=== PATIENT | male | born 1985 | race Caucasian/White ===

== ENCOUNTER 2019-06-26 16:58 | Emergency (ER) | payer MEDICAID, OTHER ==
[~2019-06-26] VITALS: Ht 190.5 cm; Wt 122.7 kg
[~2019-06-26 16:58] MED LIST: LITH300C3 PO; OLAN10TA22 PO
[2019-06-26 19:34] LABS: ANION GAP 10 mmol/L (8-16); CALCIUM, TOTAL 8.8 mg/dL (8.8-10.5); CARBON DIOXIDE 25 mmol/L (22-29); CHLORIDE 105 mmol/L (98-107); CREATININE 0.91 mg/dL (0.60-1.30); GLOMERULAR FILTR. RATE CALC > 60 mL/min (>60); GLUCOSE,RANDOM 98 mg/dL (70-110); POTASSIUM 3.9 mmol/L (3.5-5.1); SODIUM SERUM 140 mmol/L (136-145); UREA NITROGEN, BLOOD 16 mg/dL (7-18)
[2019-06-26 19:38] LABS: BASOPHILS % (AUTO) 0.8 % (0.0-2.0); HEMATOCRIT 44.7 % (41-53); HEMOGLOBIN 15.2 g/dL (13.5-17.5); LYMPHOCYTES # (AUTO) 3.2 K/uL (1.0-4.8); LYMPHOCYTES % (AUTO) 46.4 % (22.0-44.0); MEAN CORPUSCULAR HEMOGLOBIN 28.4 pg (26.0-34.0); MEAN CORPUSCULAR VOLUME 84 fL (80-100); MONOCYTES # (AUTO) 0.7 K/uL (0.1-1.0); MONOCYTES % (AUTO) 9.5 % (2.0-9.0); NEUTROPHILS # (AUTO) 2.7 K/uL (1.8-7.7); NEUTROPHILS % (AUTO) 39.3 % (40.0-70.0); PLATELET COUNT (AUTO) 241 K/uL (150-450); RED BLOOD CELL COUNT(AUTO) 5.34 MIL/uL (4.50-5.90); RED CELL DISTRIBUTION WIDTH 13.4 % (11.5-14.5)
[2019-06-26 19:40] LABS: ALANINE AMINOTRANSFERASE 63 U/L (12-78); ALKALINE PHOSPHATASE 63 U/L (46-116); ASPARTATE AMINOTRANSFERASE 27 U/L (15-37); BILIRUBIN,TOTAL 0.6 mg/dL (0.1-1.0); TOTAL PROTEIN, SERUM 7.3 g/dL (6.4-8.2)
[2019-06-26 21:00] VITALS: BP 135/88
== END 2019-06-26 21:47 | disposition home or self-care (01) ==
LOC: EMS 17:07
DX: K92.2 Gastrointestinal hemorrhage, unspecified (principal); F17.210 Nicotine dependence, cigarettes, uncomplicated
CPT/HCPCS: 82271

== ENCOUNTER 2021-06-18 00:16 | Inpatient (IN) | payer MEDICAID, OTHER ==
[~2021-06-18] VITALS: Ht 190.5 cm; Wt 123.6 kg
[2021-06-18 01:03] LABS: BASOPHILS % (AUTO) 0.7 % (0.0-2.0); EOSINOPHILS % (AUTO) 2.6 % (1.0-6.0); HEMATOCRIT 47.3 % (41-53); LYMPHOCYTES % (AUTO) 33.5 % (22.0-44.0); MEAN CORPUSCULAR HEMOGLOBIN 28.7 pg (26.0-34.0); MEAN CORPUSCULAR HGB CONC 33.9 G/dL (31.0-37.0); MEAN CORPUSCULAR VOLUME 85 fL (80-100); MONOCYTES # (AUTO) 0.9 K/uL (0.1-1.0); MONOCYTES % (AUTO) 9.9 % (2.0-9.0); NEUTROPHILS # (AUTO) 4.8 K/uL (1.8-7.7); NEUTROPHILS % (AUTO) 53.3 % (40.0-70.0); PLATELET COUNT (AUTO) 291 K/uL (150-450); RED BLOOD CELL COUNT(AUTO) 5.58 MIL/uL (4.50-5.90); RED CELL DISTRIBUTION WIDTH 13.1 % (11.5-14.5)
[2021-06-18 01:09] LABS: ANION GAP 8 mmol/L (8-16); CALCIUM, TOTAL 9.9 mg/dL (8.8-10.5); CARBON DIOXIDE 31 mmol/L (22-29); CHLORIDE 104 mmol/L (98-107); CREATININE 1.07 mg/dL (0.60-1.30); GLOMERULAR FILTR. RATE CALC > 60 mL/min (>60); GLUCOSE,RANDOM 100 mg/dL (70-110); POTASSIUM 4.2 mmol/L (3.5-5.1); SODIUM SERUM 143 mmol/L (136-145); UREA NITROGEN, BLOOD 18 mg/dL (7-18)
[2021-06-18 01:10] LABS: LITHIUM 0.29 mmol/L (0.60-1.20)
[2021-06-18 01:15] LABS: GLUCOMETER DEV NAME(LOC) ERT.5; GLUCOSE,POINT OF CARE 89 MG/DL (70-110)
[2021-06-18 01:15] LABS: ALANINE AMINOTRANSFERASE 47 U/L (12-78); ALBUMIN 4.6 g/dL (3.4-5.0); ALKALINE PHOSPHATASE 60 U/L (46-116); ASPARTATE AMINOTRANSFERASE 23 U/L (15-37); BILIRUBIN,TOTAL 0.8 mg/dL (0.1-1.0)
[2021-06-18 02:22] LABS: COVID AG,FIA SOURCE NASOPHARYNGEAL
[2021-06-18] MEDS: ZOLPIDEM TARTRATE 10 MG TABLET PO PRN ×2 (02:22→20:49)
[2021-06-18 02:27] LABS: APPEARANCE,URINE CLEAR (CLEAR); BILIRUBIN,URINE NEGATIVE (NEGATIVE); GLUCOSE, URINE (UA) NEGATIVE (NEGATIVE); KETONES,URINE NEGATIVE (NEGATIVE); LEUKOCYTE ESTERASE ,URINE NEGATIVE (NEGATIVE); NITRATE,URINE NEGATIVE (NEGATIVE); OCCULT BLOOD,URINE NEGATIVE (NEGATIVE); PH,URINE 5.5 (5.0-8.0); PROTEIN,URINE NEGATIVE (NEGATIVE); UROBILINOGEN,URINE 0.2 mg/dL (<=1.0)
[2021-06-18 02:33] LABS: AMPHET/METH SCREEN,URINE NEGATIVE (NEGATIVE); BARBITURATE SCREEN, URINE NEGATIVE (NEGATIVE); BENZODIAZEPINES SCREEN,URINE NEGATIVE (NEGATIVE); CANNABINOID SCREEN,URINE POSITIVE (NEGATIVE); COCAINE SCREEN,URINE NEGATIVE (NEGATIVE); METHADONE SCREEN, URINE NEGATIVE (NEGATIVE); OPIATE SCREEN,URINE NEGATIVE (NEGATIVE)
[2021-06-18 02:36] LABS: PHENCYCLIDINE SCREEN,URINE NEGATIVE (NEGATIVE)
[2021-06-18 05:05] VITALS: BP 132/87
[2021-06-18] MEDS ORDERED: PNEUMOCOCCAL VACCINE POLYVALENT 0.5 ML VIAL [PPSV23] IM. ONE (06:15)
[2021-06-18] MEDS ORDERED: MAGNESIUM HYDROXIDE SUSPENSION 30 ML UDCUP PO PRN (07:15)
[2021-06-18] MEDS ORDERED: ALBUTEROL SULFATE HFA 90 MCG/PUFF 8 GM INHALER IH PRN (07:15)
[2021-06-18] MEDS ORDERED: CloNIDine HCL 0.1 MG TABLET PO PRN (07:15)
[2021-06-18] MEDS ORDERED: ACETAMINOPHEN 325 MG TABLET PO PRN (07:15)
[2021-06-18] MEDS ORDERED: ONDANSETRON HCL 4 MG TABLET PO PRN (07:15)
[2021-06-18] MEDS ORDERED: BENZOCAINE/MENTHOL LOZENGE PO PRN (07:15)
[2021-06-18] MEDS ORDERED: OMEPRAZOLE 20 MG CAPSULE PO PRN (07:15)
[2021-06-18] MEDS ORDERED: LOPERAMIDE HCL 2 MG CAPSULE PO PRN (07:15)
[2021-06-18] MEDS ORDERED: DOCUSATE SODIUM 100 MG CAPSULE PO PRN (07:15)
[2021-06-18] MEDS ORDERED: MAG HYDROX/AL HYDROX/SIMETH ES 30 ML SUSPENSION UDCUP PO PRN (07:15)
[2021-06-18] MEDS ORDERED: IBUPROFEN 600 MG TABLET PO PRN (07:15)
[2021-06-18] MEDS ORDERED: PETROLATUM,WHITE 28 GM JELLY TP PRN (07:15)
[2021-06-18] MEDS ORDERED: BACITRACIN 28 GM OINTMENT TP PRN (07:15)
[2021-06-18 08:24] VITALS: BP 140/84
[2021-06-18] MEDS: LORazepam 2 MG TABLET PO PRN ×2 (09:39→16:31)
[2021-06-18] MEDS: HALOPERIDOL 5 MG TABLET PO PRN (16:31)
[2021-06-18 16:36] VITALS: BP 134/85
[2021-06-18] MEDS: LITHIUM CARBONATE 300 MG CAPSULE PO SCH (20:49)
[2021-06-19 08:21] LABS: CHOL/HDL RATIO 2.8 (4.2-7.3)
[2021-06-19 08:35] VITALS: BP 125/73
[2021-06-19] MEDS: LORazepam 2 MG TABLET PO PRN (11:21)
[2021-06-19 16:15] VITALS: BP 110/62
[2021-06-19 16:19] VITALS: BP 110/62
[2021-06-19] MEDS: LITHIUM CARBONATE 300 MG CAPSULE PO SCH (20:15)
[2021-06-20 03:09] VITALS: BP 117/62
[2021-06-20 08:25] VITALS: BP 127/82
[2021-06-20] MEDS: LORazepam 2 MG TABLET PO PRN ×2 (08:35→16:41)
[2021-06-20 16:36] VITALS: BP 113/78
[2021-06-20] MEDS: HALOPERIDOL 5 MG TABLET PO PRN (16:41)
[2021-06-20] MEDS: LITHIUM CARBONATE 300 MG CAPSULE PO SCH (20:04)
[2021-06-20] MEDS: ZOLPIDEM TARTRATE 10 MG TABLET PO PRN (20:04)
[2021-06-21 06:15] VITALS: BP 125/83
[2021-06-21 08:25] VITALS: BP 127/77
[2021-06-21] MEDS: LORazepam 2 MG TABLET PO PRN ×2 (10:47→17:50)
[2021-06-21] MEDS: HALOPERIDOL 5 MG TABLET PO PRN ×2 (10:48→17:50)
[2021-06-21 16:52] VITALS: BP 111/83
[2021-06-21] MEDS: LITHIUM CARBONATE 300 MG CAPSULE PO SCH (20:50)
[2021-06-21] MEDS: ZOLPIDEM TARTRATE 10 MG TABLET PO PRN (20:51)
[2021-06-22 04:10] VITALS: BP 132/72
[2021-06-22 08:42] VITALS: BP 126/78
[2021-06-22 16:16] VITALS: BP 129/82
[2021-06-22] MEDS: LITHIUM CARBONATE 300 MG CAPSULE PO SCH (20:50)
[2021-06-23 01:00] VITALS: BP 130/81
[2021-06-23 16:13] VITALS: BP 146/84
[2021-06-23] MEDS: LORazepam 2 MG TABLET PO PRN (16:14)
[2021-06-23] MEDS: LITHIUM CARBONATE 300 MG CAPSULE PO SCH (20:21)
[2021-06-24 04:30] VITALS: BP 143/93
[2021-06-24 09:38] VITALS: BP 130/87
[2021-06-24 16:37] VITALS: BP 134/94
[2021-06-24] MEDS: LITHIUM CARBONATE 300 MG CAPSULE PO SCH (20:24)
[2021-06-25 02:02] VITALS: BP 132/87
[2021-06-25 04:50] VITALS: BP 132/87
[2021-06-25 08:32] VITALS: BP 136/83
[2021-06-25] MEDS ORDERED: LITH300C3 PO (14:02)
== END 2021-06-25 18:29 | disposition home or self-care (01) | DRG 750 ==
LOC: EMS 00:17 → B3A 02:00
PROVIDERS: ADMIT Psychiatry & Neurology Psychiatry; ATTEND Psychiatry & Neurology Psychiatry
DX: F25.0 Schizoaffective disorder, bipolar type (principal); E11.9 Type 2 diabetes mellitus without complications; Z20.822 Contact with and (suspected) exposure to COVID-19; F12.90 Cannabis use, unspecified, uncomplicated; F41.9 Anxiety disorder, unspecified; G47.00 Insomnia, unspecified; I10 Essential (primary) hypertension; J45.909 Unspecified asthma, uncomplicated; K59.00 Constipation, unspecified; Z72.0 Tobacco use; Z71.6 Tobacco abuse counseling
CPT/HCPCS: 80053; 80061; 80178; 81003; 82962; 85025; 99285; G0480